=== PATIENT | female | born 1990 | race Caucasian/White ===

== ENCOUNTER → 2017-06-13 | Outpatient (CLI) | payer OTHER ==
[~2017-06-13] MED LIST: NORCO 5-325 TA1 EACH PO; PRENATAL FORMU1 EAC3 PO; PRENATAL MULTI1 EAC2 PO; PROMETRIUM100 MG PO
== END ==
LOC: M.CT 13:57
DX: Z13.6 Encounter for screening for cardiovascular disorders (principal)